=== PATIENT | male | born 2000 | race African-American/Black ===

== ENCOUNTER 2024-08-25 16:55 | Emergency (ER) | payer MEDICAID ==
[~2024-08-25] VITALS: Ht 188 cm; Wt 117.9 kg
[2024-08-25 17:14] VITALS: O2SAT 97
[2024-08-25] MEDS ORDERED: CIPHCO LEFT EAR (19:07)
[2024-08-25] MEDS ORDERED: NAPR-1494 MT (19:07)
[2024-08-25 19:39] VITALS: BP 128/80; PULSE 74; RESP 18; TEMP 36.7; O2SAT 97
== END 2024-08-25 19:40 ==
LOC: ER 16:55
DX: H60.92 Unspecified otitis externa, left ear (principal)
CPT/HCPCS: 99283